=== PATIENT | female | born 1990 | race African-American/Black ===

== ENCOUNTER 2022-03-25 10:59 | Emergency (ER) | payer SELFPAY ==
[~2022-03-25] VITALS: Ht 160 cm; Wt 48.5 kg
[2022-03-25 11:06] VITALS: BP 120/82
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
--- NOTE | 2022-03-25 12:01 | NUR ---
PT LEFT, NOT SEEN BY ER PHYSICIAN.
== END 2022-03-25 12:10 | disposition left against medical advice (07) ==
LOC: ER 11:29
DX: Z53.21 Procedure and treatment not carried out due to patient leaving prior to being seen by health care provider (principal); R51.9 Headache, unspecified